=== PATIENT | female | born 1935 | race Caucasian/White ===

== ENCOUNTER 2017-01-04 19:34 | Emergency (ER) | payer MEDICARE, BC ==
--- NOTE | ~2017-01-04 | CR126 ---
[facility] A Service of [facility] & [facility] RADIOLOGY TEXT RESULTS PATIENT: LUIS DICK LOCATION: [facility] : 37 UNIT #: [id number] AGE: [address]: Heather Crouch MD SEX: F ORDER DR: [id number] [facility] [address] [place], [place] [address] [id number] E MR#: [id number] Acc #: [id number] NAME: LUIS DICK : 1935 SEX: F STUDY DATE/TIME: 01/04/2017 19:28 UNIT: [facility] ROOM: STUDY DESCRIPTION: CR Foot Complete Min 3 View Lt Attending Physician: Heather Crouch M.D. Referring Physician: Kenna Looney M.D. Ordering Physician: Heather Crouch M.D. Primary Care Physician: Kenna Looney M.D. MEDICAL IMAGING REPORT This report is preliminary unless electronic signature is present EXAM Left foot, 01/04/2017 INDICATION 81-year-old female with pain, redness and bruising of the left foot that began today. No known injury. TECHNIQUE 3 views left foot. No comparisons. FINDINGS There is a tiny calcaneal spur. No acute fracture. Soft tissues unremarkable. IMPRESSION Negative. Dictated by... Torey Oreilly M.D. THIS IS AN ELECTRONICALLY VERIFIED REPORT Torey Oreilly M.D. at 01/04/2017 10:45 PM Cindy TD: 01/04/2017 21:26 JOB #: [id number] MEDICAL IMAGING REPORT Page 1 of 1 COPY
--- NOTE | ~2017-01-04 | US84 ---
[id number] [facility]. [facility] [address] [place], [place] [address] [id number] E MR#: [id number] Acc #: [id number] NAME: LUIS DICK : 1935 SEX: F STUDY DATE/TIME: 01/04/2017 20:04 UNIT: [facility] ROOM: STUDY DESCRIPTION: US LE Veins Complete Nils Stdy Attending Physician: Heather Crouch M.D. Referring Physician: Kenna Looney M.D. Ordering Physician: Heather Crouch M.D. Primary Care Physician: Kenna Looney M.D. MEDICAL IMAGING REPORT This report is preliminary unless electronic signature is present EXAM Color Doppler ultrasound examination of both lower extremities HISTORY Pain, swelling and redness of both lower extremities beginning this morning. TECHNIQUE Ultrasound evaluation was performed with saeed-scale, color flow and Doppler spectral waveform analysis. FINDINGS The examination is negative. There is no evidence of deep venous thrombus from the groin to the lower calf bilaterally. Visualized greater saphenous veins are also patent. IMPRESSION Negative examination. No evidence of lower extremity deep venous thrombosis. Dictated by... Andrews Cartwright M.D. THIS IS AN ELECTRONICALLY VERIFIED REPORT Andrews Cartwright M.D. at 01/04/2017 10:18 PM THAI/debi TD: 01/04/2017 21:57 JOB #: [id number] MEDICAL IMAGING REPORT Page 1 of 1 COPY
--- NOTE | ~2017-01-04 | CR127 ---
[facility] A Service of [facility] & [facility] / [facility] RADIOLOGY TEXT RESULTS PATIENT: LUIS DICK LOCATION: [facility] : 37 UNIT #: [id number] AGE: [address]: Heather Crouch MD SEX: F ORDER DR: [id number] [facility] [address] [place], [place] [address] [id number] E MR#: [id number] Acc #: [id number] NAME: LUIS DICK : 1935 SEX: F STUDY DATE/TIME: 01/04/2017 19:27 UNIT: [facility] ROOM: STUDY DESCRIPTION: CR Foot Complete Min 3 View Rt Attending Physician: Heather Crouch M.D. Referring Physician: Kenna Looney M.D. Ordering Physician: Heather Crouch M.D. Primary Care Physician: Kenna Looney M.D. MEDICAL IMAGING REPORT This report is preliminary unless electronic signature is present EXAM Right foot. HISTORY Pain, redness and bruising noted today. TECHNIQUE 3 views of the foot were obtained. FINDINGS The tarsal, metatarsal, and phalangeal elements are all anatomically normal in position and alignment. There are no articular defects. No fractures or radiopaque foreign bodies in the soft tissues are apparent. IMPRESSION Normal right foot. Dictated by... Andrews Cartwright M.D. THIS IS AN ELECTRONICALLY VERIFIED REPORT Andrews Cartwright M.D. at 01/04/2017 10:18 PM THAI/param TD: 01/04/2017 21:21 JOB #: [id number] MEDICAL IMAGING REPORT Page 1 of 1 COPY
[2017-01-04 19:28] LABS: BASOPHIL% 0.7 % (0-2.5); EOSINOPHIL# 0.2 X10e3 (0-0.7); EOSINOPHIL% 3.5 % (0.0-7.0); HEMATOCRIT 38.5 % (35.0-45.0); HEMOGLOBIN 12.9 gm/dL (12.0-16.0); LYMPHOCYTE# 1.5 X10e3 (1.0-3.5); LYMPHOCYTE% 25.1 % (17.0-45.0); MEAN CELL VOLUME 88.4 FL (83-96); MEAN CORPUSCULAR HEMOGLOBIN 29.5 PG (28-34); MEAN CORPUSCULAR HGB CONC 33.3 g/dL (30-36); MEAN PLATELET VOLUME 8.4 FL (6.5-11.5); MONOCYTE# 0.6 X10e3 (0-1.0); MONOCYTE% 10.1 % (3.0-12.0); NEUTROPHIL# 3.7 X10e3 (1.5-7.1); NEUTROPHIL% 60.6 % (40-75); PLATELET COUNT 125 X10e3 (140-420); RED BLOOD COUNT 4.36 X10e (3.90-5.30); RED CELL DISTRIBUTION WIDTH 13.3 % (11.0-15.5); WHITE BLOOD COUNT 6.1 X10e3 (4.0-10.5)
[2017-01-04 19:29] LABS: DIFF IND NO
[~2017-01-04 19:34] MED LIST: ACIPHEX20 MG; ALLEGRA; ALPRAZOLAM PO; ALTOPREV40 MG; AMBIEN PO; BENICAR HCT 40-1 TA1; CELEBREX; CENTRUM SILVER PO; CIPRO PO; DARVOCET-N 1001 TAB PO; FISH OIL 1,0001 CAP PO; JANUVIA PO; LORTAB 7.5-3251 EACH PO; LORTAB 7.5-5001 TAB PO; LOSARTAN-HCTZ1 EAC1 PO; LYRICA; METANX TABLET1 TAB; MEVACOR PO; MONTELUKAST SOD10 MG PO; MULTI-VITAMIN1 TAB; PROTONIX PO; SYNTHROID; SYNTHROID0.1 MG PO; TRICOR PO; VITAMIN D32000 UNI1 PO; WELCHOL625 MG PO; ZOCOR; ZOCOR PO
[2017-01-04 19:55] LABS: CALCIUM SERUM 9.1 mg/dL (8.4-10.2); GLOM FILT RATE Estimated 53.2 mL/min (>60); POTASSIUM 4.3 mmol/L (3.5-5.1)
== END 2017-01-04 21:55 | disposition home or self-care (01) ==
LOC: CED 19:34
PROVIDERS: Emergency Medicine
DX: R58 Hemorrhage, not elsewhere classified (principal); E11.9 Type 2 diabetes mellitus without complications; I10 Essential (primary) hypertension; F17.200 Nicotine dependence, unspecified, uncomplicated; Z88.1 Allergy status to other antibiotic agents
CPT/HCPCS: 36415; 73630; 80048; 85025; 93970; 99284

== ENCOUNTER → 2017-03-16 | Outpatient (CLI) | payer MEDICARE, BC ==
--- NOTE | ~2017-03-16 | US5 ---
[facility] A Service of [facility] RADIOLOGY TEXT RESULTS PATIENT: LUIS DICK LOCATION: [facility] : 37 UNIT #: [id number] AGE: [address]: Kenna Looney MD SEX: F ORDER DR: [id number] [facility] [address] [place], [place] [address] [id number] O MR#: [id number] Acc #: [id number] NAME: LUIS DICK : 1935 SEX: F STUDY DATE/TIME: 03/16/2017 7:18 UNIT: [facility] ROOM: STUDY DESCRIPTION: US Abdominal Complete Attending Physician: Kenna Looney M.D. Referring Physician: Kenna Looney M.D. Ordering Physician: Kenna Looney M.D. Primary Care Physician: Kenna Looney M.D. MEDICAL IMAGING REPORT This report is preliminary unless electronic signature is present EXAM Abdominal ultrasound complete, 03/16/2017 HISTORY Abnormally elevated liver enzymes on 03/12/2017 FINDINGS The liver demonstrates an increase in echotexture with attenuation of the ultrasound beam characteristic of fatty infiltration. No cystic or solid mass lesions were seen in the liver. The intra and extrahepatic bile ducts are not dilated. The gallbladder is surgically absent as per patient history. The common duct measures 4 mm. The pancreas and spleen are normal. The spleen measures 10 cm in diameter. The visualized portions of the abdominal aorta and inferior vena cava are within normal limits. The kidneys are normal bilaterally. IMPRESSION 1. Fatty infiltration of the liver. 2. Surgical absence of the gallbladder. Dictated by... Jd Fabian M.D. THIS IS AN ELECTRONICALLY VERIFIED REPORT Jd Fabian M.D. at 03/17/2017 2:16 PM LINK/goldy TD: 03/16/2017 23:05 JOB #: [id number] MEDICAL IMAGING REPORT [facility] A Service of [facility] RADIOLOGY TEXT RESULTS PATIENT: LUIS DICK LOCATION: [facility] #: [id number] : 37 UNIT #: [id number] AGE: [address]: Kenna Looney MD SEX: F ORDER DR: Page 1 of 1 COPY
== END | disposition home or self-care (01) ==
LOC: CGUS 06:43
DX: R79.89 Other specified abnormal findings of blood chemistry (principal); K76.0 Fatty (change of) liver, not elsewhere classified; Z90.49 Acquired absence of other specified parts of digestive tract
CPT/HCPCS: 76700